=== PATIENT | female | born 1990 | race Caucasian/White ===

== ENCOUNTER 2017-09-11 13:38 | Emergency (ER) | payer OTHER ==
[2017-09-11 14:27] VITALS: TEMP 97.5; O2SAT 100; BMI 26.2
[2017-09-11] MEDS ORDERED: Sodium Chloride 0.9% 1,000 ML IV STA (15:15)
--- NOTE | 2017-09-11 15:15 | ED PDOC ---
Arrival/HPI - General Chief Complaint: Female Genitourinary Time Seen by Provider: 09/11/17 14:14 Historian: Patient - History of Present Illness Narrative History of Present Illness (Text): 09/11/17 15:15 This 27 yo female with pmh constipation, presents to this ED c/o LLQ pain x 1 week. Patient stated she feels her abdomen "bloated". Patient denies nausea, vomiting, rectal bleeding, diarrhea, urinary symptoms, dizziness, or abnormal gait. Time/Duration: 1 week Context: Home Past Medical History - Provider Review Nursing Documentation Reviewed: Yes - Tetanus Immunization Tetanus Immunization: Unknown - Past Medical History Past Medical History: No Previous - Genitourinary/Gynecological Other/Comment: IUD - Psychiatric Hx Substance Use: No - Past Surgical History Past Surgical History: No Previous - Anesthesia Hx Anesthesia: No Hx Anesthesia Reactions: No Hx Malignant Hyperthermia: No - Suicidal Assessment Feels Threatened In Home Enviroment: No Family/Social History - Physician Review Nursing Documentation Reviewed: Yes Family/Social History: Other (noncontributory) Smoking Status: Current Some Days Smoker Hx Alcohol Use: No Hx Substance Use: No Allergies/Home Meds Allergies/Adverse Reactions: Allergies No Known Allergies Allergy (Verified 09/11/17 14:20) Review of Systems - Review of Systems Constitutional: Normal. absent: Fatigue, Weight Change, Fevers, Night Sweats Eyes: Normal ENT: Normal Respiratory: Normal. absent: SOB, Cough Cardiovascular: Normal. absent: Chest Pain Gastrointestinal: Abdominal Pain Genitourinary Female: Other ((+) dyspareunia). absent: Dysuria, Frequency, Hematuria, Vaginal Bleeding Musculoskeletal: Normal Skin: Normal Neurological: Normal Endocrine: Normal Hemo/Lymphatic: Normal Psychiatric: Normal Physical Exam Vital Signs Temp Pulse Resp BP Pulse Ox 09/11/17 14:21 97.5 F L 89 17 111/66 100 Temperature: Afebrile Blood Pressure: Normal Pulse: Regular Respiratory Rate: Normal Appearance: Positive for: Well-Appearing, Non-Toxic, Comfortable Pain Distress: None Mental Status: Positive for: Alert and Oriented X 3 - Systems Exam Head: Present: Atraumatic, Normocephalic Pupils: Present: PERRL Extroacular Muscles: Present: EOMI Conjunctiva: Present: Normal Mouth: Present: Moist Mucous Membranes Neck: Present: Normal Range of Motion Respiratory/Chest: Present: Clear to Auscultation, Good Air Exchange. No: Respiratory Distress, Accessory Muscle Use Cardiovascular: Present: Regular Rate and Rhythm, Normal S1, S2. No: Murmurs Abdomen: No: Tenderness, Distention, Peritoneal Signs Genitourinary/Pelvic Exam: Present: Other (deferred by pt) Back: Present: Normal Inspection Upper Extremity: Present: Normal Inspection. No: Cyanosis, Edema Lower Extremity: Present: Normal Inspection. No: Edema Neurological: Present: GCS=15, CN II-XII Intact, Speech Normal Skin: Present: Warm, Dry, Normal Color. No: Rashes Psychiatric: Present: Alert, Oriented x 3, Normal Insight, Normal Concentration Medical Decision Making - Lab Interpretations Lab Results: 09/11/17 15:20 09/11/17 15:20 Lab Results 09/11/17 15:20: Urine Color Yellow, Urine Appearance Clear, Urine pH 6.0, Ur Specific Draper 1.025, Urine Protein Negative, Urine Glucose (UA) Negative, Urine Ketones Negative, Urine Blood Small H, Urine Nitrate Negative, Urine Bilirubin Negative, Urine Urobilinogen 0.2, Ur Leukocyte Esterase Trace H, Urine RBC 5 - 10, Urine WBC 2 - 5, Ur Epithelial Cells Many, Amorphous Sediment Few, Urine Bacteria Many, Urine Other Uyeast, Urine HCG, Qual Negative 09/11/17 15:20: Sodium 142, Potassium 4.2, Chloride 105, Carbon Dioxide 26, Anion Gap 15, BUN 18, Creatinine 0.8, Est GFR ( Amer) > 60, Est GFR (Non- Af Amer) > 60, Random Glucose 77, Calcium 9.6, Total Bilirubin 0.3, AST 32, ALT 49, Alkaline Phosphatase 68, Total Protein 7.2, Albumin 4.3, Globulin 2.9, Albumin/Globulin Ratio 1.5, Lipase 273 09/11/17 15:20: WBC 9.5 D, RBC 4.99, Hgb 13.1, Hct 40.6, MCV 81.4, MCH 26.3, MCHC 32.3, RDW 14.3, Plt Count 227, MPV 10.3, Gran % 53.0, Lymph % (Auto) 33.5, [place] % (Auto) 5.6, Eos % (Auto) 7.6 H, Baso % (Auto) 0.3, Gran # 5.02, Lymph # ( Auto) 3.2, [place] # (Auto) 0.5, Eos # (Auto) 0.7, Baso # (Auto) 0.03 I have reviewed the lab results: Yes Interpretation: Abnormal lab values - RAD Interpretation Narrative RAD Interpretations (Text): 09/11/17 19:28 EXAM: CT Abdomen And Pelvis With Intravenous Contrast FINDINGS: Lower thorax: Lung bases demonstrate no consolidative lung disease. There is no pleural effusion. ABDOMEN: Liver: Liver is normal in size. There are no masses. No intrahepatic duct dilatation. Gallbladder and bile ducts: The gallbladder is normal, without visible stones or wall thickening. Pancreas: Pancreas is normal in size. There are no masses. No pancreatic duct dilatation. Peripancreatic fat planes are clear. Spleen: Spleen is normal in size and position. There are no masses. Adrenals: The adrenal glands are normal. Kidneys and ureters: The kidneys are normal in size and density. No renal or ureteral stones identified. No hydronephrosis. Stomach and bowel: There is no evidence of bowel obstruction. There is no significant bowel wall thickening. No significant diverticular disease is noted. Appendix: The appendix is visualized and appears normal. PELVIS: Bladder: Unremarkable as visualized. Reproductive: Retroverted uterus and adnexal structures appear normal for the patient's age. Incidental note of IUD which appears to be in good position. ABDOMEN and PELVIS: Intraperitoneal space: A small amount of water density free fluid is present within the pelvis. No free air. Bones/joints: No acute fracture. No dislocation. Soft tissues: Unremarkable. Vasculature: Normal. No abdominal aortic aneurysm. Lymph nodes: No pathologically enlarged retroperitoneal adenopathy appreciated. IMPRESSION: 1. No evidence of mass or acute disease. Thank you for allowing us to participate in the care of your patien Radiology Orders: 09/11/17 15:15 ABD PELVIS PO & IV CONTRAST [CT] Stat - Medication Orders Current Medication Orders: Discontinued Medications Azithromycin (Zithromax) 1,000 mg PO STAT STA PRN Reason: Protocol Stop: 09/11/17 17:39 Last Admin: 09/11/17 17:58 Dose: 1,000 mg Comments: unable to scan medications Famotidine (Pepcid) 20 mg IVP STAT STA Stop: 09/11/17 15:16 Last Admin: 09/11/17 15:28 Dose: 20 mg IVP Administration Document 09/11/17 15:28 GMD (Rec: 09/11/17 15:28 GMD [id number]) Charges for Administration # of IVP Administrations 1 Fluconazole (Diflucan) 150 mg PO STAT STA PRN Reason: Protocol Stop: 09/11/17 17:40 Last Admin: 09/11/17 19:18 Dose: 150 mg Sodium Chloride (Sodium Chloride 0.9%) 1,000 mls @ 1,000 mls/hr IV .Q1H STA Stop: 09/11/17 16:14 Last Admin: 09/11/17 15:28 Dose: 1,000 mls/hr eMAR Start Stop Document 09/11/17 15:28 GMD (Rec: 09/11/17 15:28 GMD [id number]) Intravenous Solution Start Date 09/11/17 Start Time 15:28 End Date 09/11/17 End time 16:28 Total Infusion Time 60 Ceftriaxone Sodium (Rocephin 1 Gram Ivpb) 1 gm in 100 mls @ 200 mls/hr IVPB STAT STA PRN Reason: Protocol Stop: 09/11/17 18:06 Last Admin: 09/11/17 18:42 Dose: 200 mls/hr eMAR Start Stop Document 09/11/17 18:42 GMD (Rec: 09/11/17 18:42 GMD [id number]) Intravenous Solution Start Date 09/11/17 Start Time 18:42 End Date 09/11/17 End time 19:12 Total Infusion Time 30 Ketorolac Tromethamine (Toradol) 15 mg IVP STAT STA Stop: 09/11/17 15:16 Last Admin: 09/11/17 15:28 Dose: 15 mg MAR Pain Assessment Document 09/11/17 15:28 GMD (Rec: 09/11/17 15:29 GMD [id number]) Pain Reassessment Is this a pain reassessment? No Presence of Pain Presence of Pain Yes IVP Administration Document 09/11/17 15:28 GMD (Rec: 09/11/17 15:29 GMD [id number]) Charges for Administration # of IVP Administrations 1 Ondansetron HCl (Zofran Inj) 4 mg IVP STAT STA Stop: 09/11/17 15:16 Last Admin: 09/11/17 15:29 Dose: 4 mg IVP Administration Document 09/11/17 15:29 GMD (Rec: 09/11/17 15:29 GMD [id number]) Charges for Administration # of IVP Administrations 1 Disposition/Present on Arrival - Present on Arrival Any Indicators Present on Arrival: No History of DVT/PE: No History of Uncontrolled Diabetes: No Urinary Catheter: No History of Decub. Ulcer: No History Surgical Site Infection Following: None - Disposition Have Diagnosis and Disposition been Completed?: Yes Diagnosis: Nonspecific abdominal pain, Dyspareunia Disposition: HOME/ ROUTINE Disposition Time: 19:31 Patient Plan: Discharge Condition: GOOD Discharge Instructions (ExitCare): Dyspareunia (Painful Sex) Additional Instructions: Call private doctor for follow up visit in 1-2 days. Take medication as instructed. Return to emergency if symptoms worsen Review urine culture and STD test with your doctor in 2 days Prescriptions: Cephalexin [Keflex] 500 mg PO BID #14 capsule Famotidine [Pepcid] 40 mg PO DAILY #10 tablet Ibuprofen [Motrin] 400 mg PO Q8H PRN #20 tab PRN Reason: Pain, Severe (8-10) Referrals: Lisa Bynum MD [Primary Care Provider] - Follow up with primary Forms: [employer] [facility] (Armenian), WORK NOTE
[2017-09-11 15:54] LABS: URINE BILIRUBIN NEGATIVE (NEGATIVE); URINE BLOOD SMALL (NEGATIVE); URINE GLUCOSE (UA) NEGATIVE (NEGATIVE); URINE LEUKOCYTE ESTERASE TRACE Leu/uL (NEGATIVE); URINE PROTEIN NEGATIVE mg/dL (<30 mg/dL); URINE UROBILINOGEN 0.2 E.U./dL (<1 E.U./dL)
[2017-09-11 15:55] LABS: ALB/GLOB RATIO 1.5 (1.1-1.8); ALBUMIN 4.3 g/dL (3.0-4.8); ALT/SGPT 49 U/L (7-56); AST/SGOT 32 U/L (14-36); BLOOD UREA NITROGEN 18 mg/dL (7-21); CALCIUM 9.6 mg/dL (8.4-10.5); GFR AFRICAN-AMERICAN > 60; GFR NON-AFRICAN AMERICAN > 60; LIPASE 273 U/L (23-300)
[2017-09-11 15:57] LABS: BASO # 0.03 K/mm3 (0.0-2.0); BASO % 0.3 % (0.0-3.0); EOS # 0.7 (0.0-0.7); EOS % 7.6 % (1.5-5.0); GRAN # 5.02 (1.4-6.5); HEMOGLOBIN 13.1 g/dL (12.0-16.0); LYMPH # 3.2 (1.2-3.4); LYMPH % 33.5 % (22.0-35.0); MEAN CELL VOLUME 81.4 fl (80.0-105.0); MEAN CORPUSCULAR HEMOGLOBIN 26.3 pg (25.0-35.0); MEAN CORPUSCULAR HGB CONC 32.3 g/dl (31.0-37.0); MEAN PLATELET VOLUME 10.3 fl (7.0-11.0); MONO # 0.5 (0.1-0.6); MONO % 5.6 % (1.0-6.0); RBC 4.99 10^6/uL (3.5-6.1); RED CELL DISTRIBUTION WIDTH 14.3 % (11.5-14.5); URINE APPEARANCE CLEAR (CLEAR); URINE COLOR YELLOW (YELLOW); WHITE BLOOD COUNT 9.5 10^3/ul (4.5-11.0)
[2017-09-11 15:58] LABS: HCG,QUALITATIVE URINE NEGATIVE (NEGATIVE)
[2017-09-11 16:00] LABS: URINE BACTERIA MANY (NEG); URINE EPITHELIAL CELLS MANY /hpf (0-5)
[2017-09-11 16:01] LABS: URINE AMORPHOUS SEDIMENT FEW
[2017-09-11] MEDS ORDERED: Iohexol 350 MG/100 ML VIAL ONE (16:14)
[2017-09-11] MEDS ORDERED: Iohexol 240 (50 ml) ONE (16:14)
[2017-09-11] MEDS ORDERED: cefTRIAXone 1 gm 1 GM/100 ML BAG IVPB STA (17:37)
[2017-09-11 19:35] VITALS: BP 110/73; PULSE 66; RESP 18
--- NOTE | 2017-09-12 09:02 | CT ---
PROCEDURE: CT Abdomen and Pelvis with contrast HISTORY: LLQ abdominal pain COMPARISON: None. TECHNIQUE: Contrast dose: Radiation dose: Total exam DLP = mGy-cm. This CT exam was performed using one or more of the following dose reduction techniques: Automated exposure control, adjustment of the mA and/or kV according to patient size, and/or use of iterative reconstruction technique. FINDINGS: LOWER THORAX: Unremarkable. LIVER: Unremarkable. No gross lesion or ductal dilatation. GALLBLADDER AND BILE DUCTS: Unremarkable. PANCREAS: Unremarkable. No gross lesion or ductal dilatation. SPLEEN: Unremarkable. ADRENALS: Unremarkable. No mass. KIDNEYS AND URETERS: Unremarkable. No hydronephrosis. No solid mass. VASCULATURE: Unremarkable. No aortic aneurysm. BOWEL: Unremarkable. No obstruction. No gross mural thickening. APPENDIX: Normal appendix. PERITONEUM: Unremarkable. No free fluid. No free air. LYMPH NODES: Unremarkable. No enlarged lymph nodes. BLADDER: Unremarkable. REPRODUCTIVE: Intrauterine device in place. 2.9 centimeters septated cystic lesion in the left ovary for which correlation with pelvic ultrasound is recommended. BONES: No acute fracture. OTHER FINDINGS: None. IMPRESSION: Intrauterine device in place. 2.9 centimeters septated cystic lesion in the left ovary for which correlation with pelvic ultrasound is recommended.
== END 2017-09-11 19:44 | disposition home or self-care (01) ==
LOC: ED 13:38
DX: R10.9 Unspecified abdominal pain (principal); N94.10 Unspecified dyspareunia
CPT/HCPCS: 74177; 80053; 81001; 83690; 84703; 85025; 87086; 87491; 87591; 96361; 96365; 96375; 99284; J0696; J1885; J2405; J7040; Q9966; Q9967